=== PATIENT | male | born 1990 | race African-American/Black ===

== ENCOUNTER 2017-12-18 21:40 | Emergency (ER) | payer SELFPAY ==
[~2017-12-18] VITALS: Ht 177.8 cm; Wt 68.0 kg
[2017-12-18 21:50] VITALS: BP 129/89
--- NOTE | 2017-12-18 22:25 | PHYS DOC ---
Past Medical History Past Medical History: No Pertinent History Past Surgical History: No Surgical History Alcohol Use: None Drug Use: Marijuana Adult General Chief Complaint Chief Complaint: LACERATION/AVULSION HPI HPI Patient is a 27 year old male who presents with right hand laceration. Patient states he accidentally cut himself opening a can. Patient is right-handed. Tetanus is up-to-date. Review of Systems Review of Systems Constitutional: Denies fever or chills [] Musculoskeletal: Denies back pain or joint pain [] Integument: right hand laceration Neurologic: Denies headache, focal weakness or sensory changes [] All other systems were reviewed and found to be within normal limits, except as documented in this note. Current Medications Current Medications Current Medications Medications (Trade) Dose Ordered Sig/Letty Start Time Stop Time Status Last Admin Dose Admin Lidocaine/Sodium Bicarbonate (Buffered Lidocaine 1%) 3 ml 1X ONCE 12/18/17 23:00 12/18/17 23:01 12/18/17 22:10 3 ML Allergies Allergies Allergies Coded Allergies Type Severity Reaction Last Updated Verified No Known Drug Allergies 12/18/17 No Physical Exam Physical Exam Constitutional: Well developed, well nourished, no acute distress, non-toxic appearance. [] Skin: Right dorsal hand distal index finger metacarpal with a laceration approximately 2 cm long. The laceration does not involve the knuckle. There is no obvious tendon involvement. This is a first-degree laceration only cutting through the epidermis. Full range of motion to the right index finger including flexion and extension at the MIP PIP and DIP joints. Adequate radial sensation to the right index finger. Cap refill less than 2 seconds the right index finger. Back: No tenderness, no CVA tenderness. [] Extremities: No tenderness, no cyanosis, no clubbing, ROM intact, no edema. [] Neurologic: Alert and oriented X 3, normal motor function, normal sensory function, no focal deficits noted. [] Psychologic: Affect normal, judgement normal, mood normal. [] Current Patient Data Vital Signs Vital Signs Date Time Temp Pulse Resp B/P (MAP) Pulse Ox O2 Delivery O2 Flow Rate FiO2 12/18/17 21:50 98.1 59 18 129/89 (102) 99 Room Air 98.1 EKG EKG [] Radiology/Procedures Radiology/Procedures Laceration/Wound Repair Wound's Depth, Shape: Horizontal Wound Length (cm): Approximately 2 cm Wound Explored: clean Irrigated w/ Saline (ccs): 30 Betadine Prep?: Yes Anesthesia: 1% buffered lidocaine Volume Anesthetic (ccs): Approximately 2 mL Wound Repaired With: Prolene Suture Size/Type: 5.0/interrupted sutures Number of Sutures: 5 Progress : Wound was covered with nonstick dressing Course & Med Decision Making Course & Med Decision Making Pertinent Labs and Imaging studies reviewed. (See chart for details) Patient has right hand laceration that was closed by me as noted in procedures. Tetanus up-to-date. Wound care instructions and return precautions provided. Dragon Disclaimer Dragon Disclaimer This electronic medical record was generated, in whole or in part, using a voice recognition dictation system. Departure Departure Impression: Primary Impression: Laceration of right hand Disposition: HOME, SELF-CARE Condition: STABLE Referrals: NO PCP (PCP) Follow-up with your doctor or the emergency room in 7-10 days for suture removal Patient Instructions: Laceration Care, Adult Additional Instructions: You were seen for right hand laceration that was repaired with stitches. You can shower and wash her hands. Keep the area clean and dry. Apply Neosporin to the area twice a day. Monitor the area for signs of infection including but not limited to increased redness to the area, warmth to the area, yellow/odor drainage from the area and return to the ED/see your doctor if they occur. Follow-up with your own doctor or the emergency room in 7-10 days for suture removal. Problem Qualifiers Primary Impression: Laceration of right hand Encounter type: initial encounter Foreign body presence: without foreign body Qualified Codes: S61.411A - Laceration without foreign body of right hand , initial encounter DAMIAN LÓPEZ STATOR TESTER Dec 18, 2017 22:25
[2017-12-18] MEDS ORDERED: LIDOCAINE WITH 8.4% SOD BICARB 3 ML DISP.SYRIN. INJ ONE (23:00)
== END 2017-12-18 22:31 | disposition home or self-care (01) ==
LOC: ER 21:40
DX: S61.411A Laceration without foreign body of right hand, initial encounter (principal); W26.8XXA Contact with other sharp object(s), not elsewhere classified, initial encounter; Y93.89 Activity, other specified; Y92.89 Other specified places as the place of occurrence of the external cause; Y99.8 Other external cause status
CPT/HCPCS: 12001; 99283